=== PATIENT | male | born 1970 | race Caucasian/White ===

== ENCOUNTER 2018-02-10 02:27 | Inpatient (IN) | payer MEDICAID, OTHER ==
[~2018-02-10] VITALS: Ht 205.7 cm; Wt 146.8 kg
[2018-02-10 03:01] LABS: Basophils # (auto) 0.1 uL; Basophils % (auto) 0.7 % (0.0-2.0); Eosinophils # (auto) 0.1 uL; Eosinophils % (auto) 2.1 % (0.0-7.0); Hematocrit 38.7 % (41.0-53.0); Hemoglobin 12.9 g/dL (13.5-17.5); Lymphocytes # (auto) 2.2 uL; Lymphocytes % (auto) 31.1 % (10.0-50.0); Mean Corpuscular Hemoglobin 32.2 pg (28.0-32.0); Mean Corpuscular Hgb Conc. 33.5 g/dL (32.0-36.0); Mean Corpuscular Volume 96.2 fL (80.0-100.0); Monocytes # (auto) 0.6 uL; Monocytes % (auto) 8.4 % (0.0-12.0); Neutrophils # (auto) 4.2 uL; Neutrophils % (auto) 57.7 % (37.0-80.0); Nucleated Red Blood Cells % 0.1 %; Platelet Count (auto) 219 10^3/uL (140-450); Red Blood Cells 4.02 10^6/uL (4.5-5.90); Red Cell Distribution Width 14.9 % (11.8-14.3); White Blood Cell 7.2 10^3/uL (4.4-10.8)
[2018-02-10 03:16] LABS: Albumin 3.2 g/dL (3.4-5.0); BUN/Creatinine Ratio 10.8; Calcium 8.1 mg/dL (8.5-10.1); Potassium 3.7 mmol/L (3.5-5.1)
[2018-02-10 03:19] LABS: Bilirubin, Total 1.5 mg/dL (0.2-1.0)
[2018-02-10] MEDS ORDERED: IOHEXOL 350 MG/ML 100ML IJ ONE (04:35)
[2018-02-10 05:28] LABS: Urine Bacteria NONE SEEN /hpf (None Seen); Urine Blood Negative /uL (Negative); Urine Specific Gravity 1.011 (1.001-1.035); Urine WBC 1 /hpf (0 - 3)
[2018-02-10] MEDS ORDERED: SODIUM CHLORIDE 0.9% 1,000 ML IV ONE (07:55)
[2018-02-10] MEDS ORDERED: FUROSEMIDE 20 MG/2 ML VIAL IV ONE (08:00)
[2018-02-10] MEDS ORDERED: LABETALOL HCL 5 MG/ML ML 20ML VIAL IV ONE (08:00)
[2018-02-10] MEDS ORDERED: hydrALAZINE HCL 20 MG/ML VL IV ONE (08:00)
[2018-02-10] MEDS ORDERED: FURO40TA PO (08:41)
[2018-02-10] MEDS ORDERED: BUPR1TAB11 PO (08:41)
[2018-02-10] MEDS ORDERED: POTA10TA51 PO (08:41)
[2018-02-10] MEDS ORDERED: CARV6.25 PO (08:41)
[2018-02-10] MEDS ORDERED: APIX5TAB PO (08:41)
[2018-02-10] MEDS ORDERED: LISI10TA6 PO (08:41)
[2018-02-10] MEDS ORDERED: CLON0.1T PO (08:41)
[2018-02-10] MEDS ORDERED: NICOTINE 14 MG/24HR TOPICAL PATCH TD ONE (08:45)
[2018-02-10] MEDS: MAGNESIUM SULFATE 1GM/100ML 100 ML IV SCH ×2 (08:47→09:17)
[2018-02-10] MEDS ORDERED: TEMAZEPAM 15 MG CAP PO PRN (09:30)
[2018-02-10] MEDS ORDERED: MORPHINE SULFATE 4 MG/ML SYR/VIAL IV PRN ×2 (09:30→10:30)
[2018-02-10] MEDS ORDERED: LORazepam 0.5 MG TAB PO PRN (09:30)
[2018-02-10] MEDS ORDERED: ONDANSETRON HCL 4 MG/2 ML VIAL IV PRN (09:30)
[2018-02-10] MEDS ORDERED: LACTULOSE 20Gm/30ML SOLN PO PRN (09:30)
[2018-02-10] MEDS ORDERED: ACETAMINOPHEN 500 MG TAB PO PRN (09:30)
[2018-02-10] MEDS ORDERED: PATIENTS OWN MEDICATION (Carvedilol (Coreg) 1 TAB) PO SCH (10:00)
[2018-02-10] MEDS ORDERED: BUPROPION HCL 100 MG PO SCH (10:00)
[2018-02-10] MEDS ORDERED: PATIENTS OWN MEDICATION (Lisinopril 10 MG) PO SCH (10:00)
[2018-02-10] MEDS ORDERED: APIXABAN BASE 5 MG PO SCH (10:00)
[2018-02-10] MEDS: POTASSIUM CHL 20 Meq TABLET PO SCH (10:08)
[2018-02-10] MEDS: PANTOPRAZOLE 40 MG TAB PO SCH (10:08)
[2018-02-10] MEDS: buPROPion HCL 100 MG TAB PO SCH ×2 (10:08→21:36)
[2018-02-10] MEDS: CARVEDILOL 3.125 MG TAB PO SCH ×2 (10:08→21:37)
[2018-02-10] MEDS: APIXABAN 5 MG TAB PO SCH ×2 (10:08→21:36)
[2018-02-10] MEDS: ASPirin 81 mg TAB PO SCH (10:08)
[2018-02-10] MEDS: FUROSEMIDE 40 MG/4 ML VIAL IV SCH ×2 (10:08→21:37)
[2018-02-10] MEDS: LISINOPRIL 10 MG TAB PO SCH (10:09)
[2018-02-10] MEDS: NITROGLYCERIN 0.2MG/HR TOPICAL PATCH TD SCH (10:09)
[2018-02-10] MEDS: SODIUM CHLOR 0.9% PF (SALINE LOCK) 10ML VIAL/SYR IV SCH ×2 (10:18→21:36)
[2018-02-10] MEDS ORDERED: NITROGLYCERIN 0.4 MG SL TAB SL PRN (10:30)
[2018-02-10] MEDS ORDERED: ENALAPRILAT 1.25 MG/ML-1ML VIAL IV PRN (14:45)
[2018-02-10] MEDS: traMADol HCL 50 MG TAB PO PRN (16:00)
[2018-02-10 18:14] VITALS: BP 178/80
[2018-02-10 20:46] LABS: Alcohol, Urine < 3.0 mg/dL (0-5); Amphetamine Screen, Urine NEGATIVE (NEGATIVE); Barbiturate Scree,Urine NEGATIVE (NEGATIVE); Benzodiazephine Screen, Urine NEGATIVE (NEGATIVE); Cannabinoid Screen, Urine NEGATIVE (NEGATIVE); Cocaine Screen, Urine NEGATIVE (NEGATIVE); Opiate Scree,Urine NEGATIVE (NEGATIVE); Phencyclidine Screen, Urine NEGATIVE (NEGATIVE)
[2018-02-10 21:26] VITALS: BP 163/120
[2018-02-11] MEDS: traMADol HCL 50 MG TAB PO PRN (03:00)
[2018-02-11 05:00] VITALS: BP 149/81
[2018-02-11] MEDS: SODIUM CHLOR 0.9% PF (SALINE LOCK) 10ML VIAL/SYR IV SCH (05:24)
[2018-02-11 05:44] LABS: Basophils # (auto) 0 uL; Basophils % (auto) 0.3 % (0.0-2.0); Eosinophils # (auto) 0.1 uL; Eosinophils % (auto) 1.8 % (0.0-7.0); Hematocrit 38.9 % (41.0-53.0); Hemoglobin 13.4 g/dL (13.5-17.5); Lymphocytes # (auto) 1.4 uL; Lymphocytes % (auto) 23.5 % (10.0-50.0); Mean Corpuscular Hemoglobin 33.3 pg (28.0-32.0); Mean Corpuscular Hgb Conc. 34.5 g/dL (32.0-36.0); Mean Corpuscular Volume 96.5 fL (80.0-100.0); Monocytes # (auto) 0.6 uL; Monocytes % (auto) 9.3 % (0.0-12.0); Neutrophils % (auto) 65.1 % (37.0-80.0); Nucleated Red Blood Cells % 0.1 %; Platelet Count (auto) 193 10^3/uL (140-450); Red Blood Cells 4.03 10^6/uL (4.5-5.90); White Blood Cell 6.2 10^3/uL (4.4-10.8)
[2018-02-11 06:11] LABS: Albumin 3.4 g/dL (3.4-5.0); BUN/Creatinine Ratio 12.1; Bilirubin, Total 2.2 mg/dL (0.2-1.0); Calcium 8.4 mg/dL (8.5-10.1); Potassium 3.4 mmol/L (3.5-5.1); Total Protein 7.3 g/dL (6.4-8.2)
[2018-02-11 08:00] VITALS: BP 151/69
[2018-02-11] MEDS: POTASSIUM CHL 20 Meq TABLET PO SCH (08:30)
[2018-02-11] MEDS: FUROSEMIDE 40 MG/4 ML VIAL IV SCH (08:30)
[2018-02-11] MEDS: buPROPion HCL 100 MG TAB PO SCH (08:31)
[2018-02-11] MEDS: PANTOPRAZOLE 40 MG TAB PO SCH (08:31)
[2018-02-11] MEDS: APIXABAN 5 MG TAB PO SCH (08:31)
[2018-02-11] MEDS: LISINOPRIL 10 MG TAB PO SCH (08:31)
[2018-02-11] MEDS: ASPirin 81 mg TAB PO SCH (08:32)
[2018-02-11] MEDS: CARVEDILOL 3.125 MG TAB PO SCH (08:32)
[2018-02-11 09:00] VITALS: BP 146/103
[2018-02-11] MEDS: NITROGLYCERIN 0.2MG/HR TOPICAL PATCH TD SCH (10:00)
[2018-02-11 12:03] VITALS: BP 146/103
== END 2018-02-11 14:40 | disposition home or self-care (01) | DRG 194 ==
LOC: EDBD 02:27 → ER 02:38 → TELE 02:39 → WEST WING 18:00 → TELE-WESTW 18:05
PROVIDERS: ADMIT Internal Medicine; ATTEND Hospitalist
DX: I11.0 Hypertensive heart disease with heart failure (principal); E44.1 Mild protein-calorie malnutrition; I27.29 Other secondary pulmonary hypertension; I50.33 Acute on chronic diastolic (congestive) heart failure; F17.210 Nicotine dependence, cigarettes, uncomplicated; E66.9 Obesity, unspecified; E83.42 Hypomagnesemia; I16.0 Hypertensive urgency; I48.91 Unspecified atrial fibrillation; I50.82 Biventricular heart failure; Z82.49 Family history of ischemic heart disease and other diseases of the circulatory system; Z83.3 Family history of diabetes mellitus; Z68.34 Body mass index [BMI] 34.0-34.9, adult; Z88.0 Allergy status to penicillin; Z71.89 Other specified counseling
CPT/HCPCS: 36415; 71275; 80053; 80061; 80307; 81001; 82550; 83880; 84443; 84484; 85025; 85379; 85652; 86141; 93005; 94761; 96361; 96365; 96375